=== PATIENT | female | born 1940 | race Caucasian/White ===

== ENCOUNTER 2018-11-27 06:41 | Inpatient (IN) | payer OTHER ==
[2018-11-27] VITALS (22 sets, daily range): BP systolic 112–149; BP diastolic 45–71; PULSE 48–72; RESP 15–18; Ht 157.5 cm; Wt 60.7 kg
[~2018-11-27] VITALS: Ht 157.5 cm; Wt 60.7 kg
[2018-11-27] MEDS ORDERED: SEVOFLURANE 15 MIN ONE (07:00)
[2018-11-27] MEDS ORDERED: GLYCOPYRROLATE 0.4 MG INJ ONE (07:00)
[2018-11-27] MEDS ORDERED: CEFAZOLIN 1 GM INJ ONE (07:00)
[2018-11-27] MEDS ORDERED: LOSA25TA12 PO (07:11)
[2018-11-27] MEDS ORDERED: HYDR25TA6 ORAL (07:11)
[2018-11-27] MEDS ORDERED: CHOL100062 PO (07:11)
[2018-11-27] MEDS ORDERED: B CO PO (07:11)
[2018-11-27] MEDS ORDERED: CYCL1DRO OP (07:11)
[2018-11-27] MEDS ORDERED: ESOM40CA ORAL (07:11)
[2018-11-27] MEDS ORDERED: CALC500T91 PO (07:12)
[2018-11-27] MEDS: LACTATED RINGER'S 1,000 ML IV SCH (07:30)
--- NOTE | 2018-11-27 07:42 | PREAC ---
Date/Time of Note Date/Time of Note DATE: 11/27/18 TIME: 07:40 Anesthesia Eval and Record Evaluation Time Pre-Procedure Interview DATE: 11/27/18 TIME: 07:40 Age 78 Sex female NPO: 8 hrs Preoperative diagnosis right knee osteoarthritis Planned procedure right total knee replacement Past Medical History Past Medical History: Includes Cardio: HTN, Arrythmia (pacemaker) Surgery & Anesthesia Issues No known issue Meds Anticoagulation: No Beta Robin within 24 hr: No Reason Beta Robin not given: Pt. not on B-Robin Reported Medications Calcium Carbonate ([id number]) 500 Mg Tablet, 1000 MG PO DAILY, TAB 11/27/18 Cholecalciferol* (Vitamin D3*) 1,000 Unit Tablet, 1000 UNIT PO DAILY, TAB 11/27/18 B Complex With Vitamin C (B-COMPLEX PLUS VITAMIN C) 1 Each Tablet, 1 TAB PO DAILY, #30 TAB 11/27/18 Cyclosporine (RESTASIS) 1 Each Droperette, 1 DROP OP BID 11/27/18 Esomeprazole Mag Trihydrate (Nexium) 40 Mg Capsule.dr, 1 CAP ORAL DAILY 11/27/18 Hydrochlorothiazide* (Hydrochlorothiazide*) 25 Mg Tab, 1 TAB ORAL DAILY 11/27/18 Losartan Potassium* (Losartan Potassium*) 25 Mg Tablet, 25 MG PO DAILY, TAB 11/27/18 Current Medications Lactated Ringer's 1,000 ml @ 30 mls/hr Q24H IV ; Start 11/27/18 at 07:30 Meds reviewed: Yes Allergies Coded Allergies: Penicillins (Verified Allergy, Mild, Rashes, 11/27/18) Allergies Reviewed: Yes Labs/Studies Labs Reviewed: Reviewed by anesthesiologist test: N/A Studies: CXR Pre-procedure Exam Last vitals Vital Signs Date Temp Pulse Resp B/P (MAP) Pulse Ox O2 O2 Flow FiO2 Time Delivery Rate 11/27/18 97.3 59 18 117/59 99 Room Air 07:15 (78) Airway: Adequate mouth opening, Adequate thyromental dist Mallampati: Mallampati II Teeth: Normal Lung: Normal Heart: Normal ASA Physical Status ASA physical status: 3 Emergency: None Planned Anesthetic General/MAC: ETT, LMA Neuraxial: Spinal Nerve block: Femoral (right) Pre-operative Attestations Prior to commencing anesthesia and surgery, the patient was re-evaluated, there was verification of: *The patient's identity *The results of appropriate recent lab work and preoperative vital signs *The above evaluation not changing prior to induction *Anesthetic plan, risk benefits, alternative and complications discussed with patient/family; questions answered; patient/family understands, accepts and wishes to proceed. PEYMAN LUNA November 27, 2018 07:42
[2018-11-27] MEDS ORDERED: BACITRACIN 50000 UNITS INJ ONE (07:43)
[2018-11-27] MEDS ORDERED: PROPOFOL 20 ML ONE (07:45)
[2018-11-27] MEDS ORDERED: POLYMYXIN B 500000 UNIT INJ ONE (07:45)
[2018-11-27] MEDS ORDERED: LIDOCAINE 2% (SDV) 5 ML INJ ONE (07:46)
[2018-11-27] MEDS ORDERED: ROCURONIUM 50 MG INJ ONE ×2 (07:46→09:14)
[2018-11-27] MEDS ORDERED: MIDAZOLAM 1 MG/ML 2 ML INJ ONE (07:47)
[2018-11-27] MEDS ORDERED: FENTAnyl 50 MCG/ML VIAL ONE (07:48)
[2018-11-27] MEDS ORDERED: TRANEXAMIC ACID 1GM/100ML(PMX) 100 ML ONE (07:55)
[2018-11-27] MEDS ORDERED: TRANEXAMIC ACID 1GM/100ML(PMX) 20 ML IV STA (08:14)
--- NOTE | 2018-11-27 08:14 | HPN ---
Date/Time of Note Date/Time of Note DATE: 11/27/18 TIME: 08:14 Interval H&P Admission Note Pt. seen H&P reviewed: No system changes KARLA VILLELA MD November 27, 2018 08:14
[2018-11-27] MEDS ORDERED: POLYMYXIN/BACITRACIN 1L IRRIG IRR ONE (09:05)
[2018-11-27] MEDS ORDERED: ONDANSETRON 4 MG INJ ONE (10:15)
[2018-11-27] MEDS ORDERED: BUPIVACAINE 0.5% (SDV) 30 ML INJ ONE (10:15)
[2018-11-27] MEDS ORDERED: DEXAMETHASONE 4 MG/ML 5 ML INJ ONE (10:15)
[2018-11-27] MEDS ORDERED: NEOSTIGMINE 3 MG/3 ML SYRINGE ONE (10:25)
--- NOTE | 2018-11-27 10:45 | PAC ---
Date/Time of Note Date/Time of Note DATE: 11/27/18 TIME: 10:44 Post-Anesthesia Notes Post-Anesthesia Note Last documented vital signs Vital Signs Date Temp Pulse Resp B/P (MAP) Pulse Ox O2 O2 Flow FiO2 Time Delivery Rate 11/27/18 97.3 59 18 117/59 99 Room Air 1044 (78) Activity: WNL Respiratory function: WNL Cardiovascular function: WNL Mental status: Baseline Pain reasonably controlled: Yes Hydration appropriate: Yes Nausea/Vomiting absent: Yes PEYMAN LUNA November 27, 2018 10:45
--- NOTE | 2018-11-27 10:56 | OPR ---
Date/Time of Note Date/Time of Note DATE: 11/27/18 TIME: 10:52 Operative Report Preoperative Diagnosis Right knee osteoarthritis Postoperative Diagnosis Same Operation/Procedure Performed Right total knee replacement Surgeon see signature line [employer] Repairer Tameka Valladares Anesthesia Type: general, spinal, other (Abductor canal block) Estimated Blood Loss: 100 - 150 ml's Transfusion none Specimen Bone Grafts/Implants Romana implants Femur size 2 Tibia size 2 Insert 13 mm Patella A32mm Complications none Pt Condition Post Procedure: stable Disposition: PACU Procedure Description INDICATIONS FOR PROCEDURE: This is a 78-year-old female who has had progressive pain in the right knee. The patient has failed nonoperative treatment and now presents for elective total knee replacement. Risks and benefits were discussed with the patient, risks including but not limited to infection, bleeding, blood clots, dislocation, fracture, knee stiffness, nerve damage, blood vessel damage, along with other medical, anesthetic and surgical complications were discussed. Informed consent was obtained. DESCRIPTION OF PROCEDURE: The patient's correct extremity was identified in the preoperative area. The patient was brought back to the operating room where a spinal anesthetic was placed followed by an adductor canal block. The correct extremity was then prepped and draped in the standard sterile manner. A timeout was performed. Esmarch was used to exsanguinate. The thigh tourniquet was inflated to 250 mmHg. I then made a standard midline incision for approaching the knee. I went through skin and subcutaneous tissue, made a medial parapatellar arthrotomy. Then, flexed the knee and introduced an intramedullary alignment guide. Distal femoral cut was made and then the extramedullary alignment guide was used to make the tibial cut. Flexion and extension gaps were checked. There were symmetric. The knee went from full extension to full flexion. I then turned my attention to the patella. I used an [id number] mill type cutting guide, cut the patellar to appropriate thickness and sized the patella. I then trialed the patella. The patella tracked well without any external pressure. I then made the peg holes for the femoral trial. Punched the tibia. I took out all trial components. Thoroughly irrigated the bony surfaces, dried them with a lap sponge. I then proceeded to cement the tibia, femur and patellar components. A trial insert was used till the cement hardened. After the cement hardened, I thoroughly irrigted the knee. The knee was well balanced. I then let down the tourniquet, obtained adequate hemostasis. I thoroughly irrigated the knee. I then impacted the appropriate all poly insert until it locked into place and I had full range of motion with just a jog of opening with varus and valgus stress. I then turned my attention to closure. I closed the medial parapatellar arthrotomy with interrupted #1 Vicryl, subcutaneous tissue was closed with 2-0 Vicryl, skin with richard. Dry sterile dressings were applied. The patient had good perfusion to her foot with a 2+ dorsalis pedis pulse. She was then extubated and transported to recovery in stable condition. KARLA VILLELA MD November 27, 2018 10:56
[2018-11-27] MEDS ORDERED: oxyCODONE 5 MG TAB PO PRN ×2 (11:00)
[2018-11-27] MEDS ORDERED: METOCLOPRAMIDE 10 MG INJ IV PRN (11:00)
[2018-11-27] MEDS ORDERED: ALBUTEROL 0.083% (NEB) 2.5 MG/3 ML AMP HHN PRN (11:00)
[2018-11-27] MEDS ORDERED: HYDROmorphONE 1 MG/5 ML IV SYRINGE IV PRN ×3 (11:00)
[2018-11-27] MEDS ORDERED: EPHEDrine 25 MG/5 ML SYG IV PRN (11:00)
[2018-11-27] MEDS ORDERED: NALOXONE (0.4 MG/ML) INJ IV PRN (11:00)
[2018-11-27] MEDS ORDERED: LABETALOL HCL 20MG INJ IV PRN (11:00)
[2018-11-27] MEDS ORDERED: NACL 0.9% 3 ML SYG IV SCH (11:00)
[2018-11-27] MEDS ORDERED: FENTAnyl 50 MCG/ML VIAL IV PRN ×3 (11:00)
[2018-11-27] MEDS ORDERED: BETHANECHOL 25 MG TAB PO PRN (11:00)
[2018-11-27] MEDS ORDERED: KETOROLAC 30 MG INJ IV PRN (11:00)
[2018-11-27] MEDS ORDERED: DOCUSATE SODIUM 100 MG CAP PO ONE (11:00)
[2018-11-27] MEDS ORDERED: MIDAZOLAM 1 MG/ML 2 ML INJ IV PRN (11:00)
[2018-11-27] MEDS ORDERED: MAGNESIUM HYDROXIDE 30ML CUP PO PRN (11:00)
[2018-11-27] MEDS ORDERED: ONDANSETRON 4 MG INJ IV PRN (11:00)
[2018-11-27] MEDS ORDERED: hydrALAzine 20 MG INJ IV PRN (11:00)
[2018-11-27] MEDS ORDERED: MEPERIDINE 25 MG INJ IV PRN (11:00)
[2018-11-27] MEDS ORDERED: NA PHOSPHATE/BIPHOS 133 ML ENEMA PR PRN (11:00)
[2018-11-27] MEDS ORDERED: DIPHENHYDRAMINE 50 MG INJ IV PRN (11:00)
[2018-11-27] MEDS ORDERED: BISACODYL 10 MG SUPP PR PRN (11:00)
[2018-11-27] MEDS ORDERED: SENNA/DOCUSATE NA (8.6MG/50MG) TAB PO PRN (11:00)
[2018-11-27] MEDS: CEFAZOLIN 2 GM/50 ML (PMX) 50 ML IVPB SCH ×2 (11:26→18:27)
[2018-11-27] MEDS: SOD CHLORIDE 0.9% 1,000 ML IV SCH (11:56)
[2018-11-27] MEDS: ONDANSETRON 4 MG INJ IV SCH ×2 (11:56→18:27)
[2018-11-27] MEDS: HYDROmorphONE 1 MG/ML SYG IV PRN ×2 (13:50→20:39)
[2018-11-27] MEDS: CALCIUM CARBONATE 1.25 GM TAB PO SCH (20:39)
[2018-11-27] MEDS: CYCLOSPORINE 0.05% OPH DROPERETTE BOTH EYES SCH (21:00)
[2018-11-28] VITALS: BP 102/51; PULSE 50; RESP 18
[2018-11-28] MEDS: ONDANSETRON 4 MG INJ IV SCH ×2 (00:02→06:00)
[2018-11-28] MEDS: SOD CHLORIDE 0.9% 1,000 ML IV SCH (01:07)
[2018-11-28] MEDS: CEFAZOLIN 2 GM/50 ML (PMX) 50 ML IVPB SCH (03:38)
[2018-11-28] MEDS: CYCLOSPORINE 0.05% OPH DROPERETTE BOTH EYES SCH ×2 (06:53→21:13)
[2018-11-28] MEDS: NEXIUM 40 MG CAPSULE PO SCH (06:53)
[2018-11-28] MEDS: LACTATED RINGER'S 1,000 ML IV SCH (06:55)
[2018-11-28] MEDS: HYDROmorphONE 1 MG/ML SYG IV PRN (08:14)
[2018-11-28 08:19] VITALS: BP 131/61; PULSE 68; RESP 18
[2018-11-28] MEDS: CHOLECALCIFEROL 1,000 UNIT TAB PO SCH (08:31)
[2018-11-28] MEDS: CALCIUM CARBONATE 1.25 GM TAB PO SCH ×2 (08:31→21:13)
[2018-11-28] MEDS: VITAMIN B COMPLEX/VIT C CAP PO SCH (08:31)
[2018-11-28] MEDS: DOCUSATE SODIUM 100 MG CAP PO SCH ×2 (08:31→21:13)
[2018-11-28] MEDS: HYDROCHLOROTHIAZIDE 25 MG TAB PO SCH (08:32)
[2018-11-28] MEDS: LOSARTAN 25 MG TAB PO SCH (08:32)
--- NOTE | 2018-11-28 09:09 | PN ---
Date/Time of Note Date/Time of Note DATE: 11/28/18 TIME: 09:07 Subjective Chart was reviewed. Doing well. Pain is well controlled. She walked with physical therapy immediately following surgery Objective Vitals Vital Signs Date Temp Pulse Resp B/P (MAP) Pulse Ox O2 O2 Flow FiO2 Time Delivery Rate 11/28/18 98.3 68 18 131/61 98 Room Air 08:19 (84) Intake and Output 11/27/18 11/27/18 11/28/18 1515:00 23:00 07:00 IntakeIntake Total 1750 ml 690 ml 1410 ml OutputOutput Total 400 ml 500 ml 1300 ml BalanceBalance 1350 ml 190 ml 110 ml Clear to auscultation bilaterally Regular rate and rhythm Soft nontender nondistended normoactive bowel sounds Right knee with clean dressing Nonfocal Results Result Diagram: 11/28/18 0501 Medications Medications Current Medications Lactated Ringer's 1,000 ml @ 30 mls/hr Q24H IV ; Start 11/27/18 at 07:30 Sodium Chloride 1,000 ml @ 80 mls/hr [id number] IV Last administered on 11/28/18at 01:07; Admin Dose 80 MLS/HR; Start 11/27/18 at 10:40 IV Flush (NS 3 ml) 3 ml PER PROTOCOL IV ; Start 11/27/18 at 11:00 Oxycodone HCl (Roxicodone) 15 mg Q4H PRN PO .PAIN; Start 11/27/18 at 11:00 Oxycodone HCl (Roxicodone) 10 mg Q4H PRN PO .PAIN; Start 11/27/18 at 11:00 Oxycodone HCl (Roxicodone) 5 mg Q4H PRN PO .PAIN; Start 11/27/18 at 11:00 Hydromorphone HCl (Dilaudid) 1 mg Q3H PRN IV .BREAKTHROUGH PAIN Last administered on 11/28/18at 08:14; Admin Dose 1 MG; Start 11/27/18 at 11:00 Docusate Sodium (Colace) 200 mg BID PO Last administered on 11/28/18at 08:31; Admin Dose 200 MG; Start 11/28/18 at 09:00; Stop 12/01/18 at 08:59 Simethicone (Mylicon) 80 mg TID PRN PO .GAS; Start 11/27/18 at 11:00 Senna/Docusate Sodium (Senokot-S) 2 tab BID PRN PO .CONSTIPATION; Start 11/27/18 at 11:00 Magnesium Hydroxide (Milk Of Mag) 30 ml HS PRN PO .CONSTIPATION; Start 11/27/18 at 11:00 Bisacodyl (Dulcolax Supp) 10 mg DAILY PRN [place] .CONSTIPATION; Start 11/27/18 at 11:00 Sodium Biphosphate/ Sodium Phosphate (Fleet Enema) 133 ml DAILY PRN [place] .CONSTIPATION; Start 11/27/18 at 11:00 Naloxone HCl (Narcan) 0.2 mg Q2M PRN IV .RESP RATE; Start 11/27/18 at 11:00 Bethanechol Chloride (Urecholine) 25 mg URINARY CATH D/C PRN PO UNABLE TO VOID; Start 11/27/18 at 11:00 Enoxaparin Sodium (Lovenox) 30 mg Q12 SC ; Start 11/27/18 at 21:00; Status Hold Vitamin B Complex/ Vitamin C (Berocca) 1 cap DAILY PO Last administered on 11/28/18 08:31; Admin Dose 1 CAP; Start 11/28/18 at 09:00 Calcium Carbonate (Oyster Shell Calcium) 1.25 gm BID PO Last administered on 11/28/18 08:31; Admin Dose 1.25 GM; Start 11/27/18 at 21:00 Cholecalciferol (Vitamin D) 1,000 unit DAILY PO Last administered on 11/28/18 08:31; Admin Dose 1,000 UNIT; Start 11/28/18 at 09:00 Cyclosporine (Restasis) 1 drop BID BOTH EYES Last administered on 11/28/18 06:53; Admin Dose 1 DROP; Start 11/27/18 at 21:00 Hydrochlorothiazide (Hydrochlorothiazide) 25 mg DAILY PO Last administered on 11/28/18 08:32; Admin Dose 25 MG; Start 11/28/18 at 09:00 Losartan Potassium (Cozaar) 25 mg DAILY PO Last administered on 11/28/18 08:32; Admin Dose 25 MG; Start 11/28/18 at 09:00 Patient Own Medication 1 ea DAILY PO Last administered on 11/28/18 06:53; Admin Dose 1 EA; Start 11/28/18 at 09:00 VTE Prophylaxis Risk score (from Ns)>0 risk: 8 SCD applied (from [facility] [place]): Yes Lines/Catheters IV Catheter Type: Saline Lock Storey in Place: No Assessment/Plan Assessment/Plan 78-year-old female postop day #1 right total knee replacement Hypertension, well controlled History of gastritis Status post pacemaker placement in 1992 Continue postop care Physical therapy Monitor CBC Discharge planning in a.m. Orthopedic follow-up BETZAIDA LAZARO MD November 28, 2018 09:09
--- NOTE | 2018-11-28 09:38 | PN ---
Date/Time of Note Date/Time of Note DATE: 11/28/18 TIME: 09:37 Assessment/Plan Lines/Catheters IV Catheter Type (from Nrs): Saline Lock Krishnamurthy in Place (from Nrs): No Assessment/Plan Assessment/Plan POD 1 Doing well OOB with PT, CPM Lovenox, SCD's for DVT prophylaxis Ok to discharge on Xarelto for 12 days tomorrow D/c krishnamurthy Discharge planning Subjective 24 Hr Interval Summary No complaints. Working with PT. Exam/Review of Systems Vital Signs Vitals Vital Signs Date Temp Pulse Resp B/P (MAP) Pulse Ox O2 O2 Flow FiO2 Time Delivery Rate 11/28/18 98.3 68 18 131/61 98 Room Air 08:19 (84) Intake and Output 11/27/18 11/27/18 11/28/18 1515:00 23:00 07:00 IntakeIntake Total 1750 ml 690 ml 1410 ml OutputOutput Total 400 ml 500 ml 1300 ml BalanceBalance 1350 ml 190 ml 110 ml Exam Free Text/Dictation Left Knee Drainage on dressing. Dressing removed. Incision clean, dry and intact. No erythema Calf soft intact motor and sensory function in foot Foot warm Results Result Diagram: 11/28/18 0501 KARLA VILLELA MD November 28, 2018 09:38
[2018-11-28] MEDS: ENOXAPARIN 30 MG/0.3 ML SYG SC SCH (11:00)
--- NOTE | 2018-11-28 12:00 | HP ---
Date/Time of Note Date/Time of Note DATE: 11/28/18 TIME: 11:59 Assessment/Plan VTE Prophylaxis Risk score (from Ns)>0 risk: 6 SCD applied (from Ns): Yes Pharmacological prophylaxis: LMWH Lines/Catheters IV Catheter Type (from Nrs): Saline Lock Urinary Cath still in place: No Assessment/Plan Hospital Course 1) osteoarthritis - s/p knee replacement - PT - pain medication 2) hypertension - continue home medication Result Diagram: 11/28/18 0501 Results 24hrs Laboratory Tests Test 11/28/18 04:30 11/28/18 05:01 11/28/18 06:53 Urine Color YELLOW Urine Clarity SLIGHTLY CLOUDY A Urine pH 5.0 Urine Specific [place] 1.009 Urine Ketones NEGATIVE Urine Nitrite NEGATIVE Urine Bilirubin NEGATIVE Urine Urobilinogen NEGATIVE Urine Leukocyte Esterase NEGATIVE Urine Microscopic RBC > 182 H Urine Microscopic WBC 13 H Urine Squamous FEW Epithelial Cells Urine Bacteria FEW A Urine Hemoglobin 3+ H Urine Glucose 1+ H Urine Total Protein NEGATIVE White Blood Count 19.6 H Red Blood Count 3.62 L Hemoglobin 11.3 L Hematocrit 34.0 L Mean Corpuscular Volume 93.9 Mean Corpuscular Hemoglobin 31.2 Mean Corpuscular 33.2 Hemoglobin Concent Red Cell Distribution Width 12.2 Platelet Count 223 Mean Platelet Volume 10.3 Immature Granulocytes % 0.500 H Neutrophils % 88.9 H Lymphocytes % 5.1 L Monocytes % 5.4 Eosinophils % 0.0 Basophils % 0.1 Nucleated Red Blood Cells % 0.0 Immature Granulocytes # 0.100 H Neutrophils # 17.4 H Lymphocytes # 1.0 Monocytes # 1.1 H Eosinophils # 0.0 Basophils # 0.0 Nucleated Red Blood Cells # 0.0 Lab Scanned Report REFERENCE LAB HPI/ROS Admit Date/Time Admit Date/Time November 27, 2018 at 06:41 Hx of Present Illness Patient with hypertension, GERD, osteoarthritis is here fro knee replacement. PMH/Family/Social Past Medical History Medical History: GERD, hypertension Medications Current Medications IV Flush (NS 3 ml) 3 ml PER PROTOCOL IV ; Start 11/27/18 at 11:00 Oxycodone HCl (Roxicodone) 15 mg Q4H PRN PO .PAIN; Start 11/27/18 at 11:00 Oxycodone HCl (Roxicodone) 10 mg Q4H PRN PO .PAIN; Start 11/27/18 at 11:00 Oxycodone HCl (Roxicodone) 5 mg Q4H PRN PO .PAIN; Start 11/27/18 at 11:00 Hydromorphone HCl (Dilaudid) 1 mg Q3H PRN IV .BREAKTHROUGH PAIN Last administered on 11/28/18at 08:14; Admin Dose 1 MG; Start 11/27/18 at 11:00 Docusate Sodium (Colace) 200 mg BID PO Last administered on 11/28/18at 08:31; Admin Dose 200 MG; Start 11/28/18 at 09:00; Stop 12/01/18 at 08:59 Simethicone (Mylicon) 80 mg TID PRN PO .GAS; Start 11/27/18 at 11:00 Senna/Docusate Sodium (Senokot-S) 2 tab BID PRN PO .CONSTIPATION; Start 11/27/18 at 11:00 Magnesium Hydroxide (Milk Of Mag) 30 ml HS PRN PO .CONSTIPATION; Start 11/27/18 at 11:00 Bisacodyl (Dulcolax Supp) 10 mg DAILY PRN [place] .CONSTIPATION; Start 11/27/18 at 11:00 Sodium Biphosphate/ Sodium Phosphate (Fleet Enema) 133 ml DAILY PRN [place] .CONSTIPATION; Start 11/27/18 at 11:00 Naloxone HCl (Narcan) 0.2 mg Q2M PRN IV .RESP RATE; Start 11/27/18 at 11:00 Bethanechol Chloride (Urecholine) 25 mg URINARY CATH D/C PRN PO UNABLE TO VOID; Start 11/27/18 at 11:00 Enoxaparin Sodium (Lovenox) 30 mg Q12 SC Last administered on 11/28/18at 11:00; Admin Dose 30 MG; Start 11/27/18 at 21:00 Vitamin B Complex/ Vitamin C (Berocca) 1 cap DAILY PO Last administered on 11/28/18at 08:31; Admin Dose 1 CAP; Start 11/28/18 at 09:00 Calcium Carbonate (Oyster Shell Calcium) 1.25 gm BID PO Last administered on 11/28/18 08:31; Admin Dose 1.25 GM; Start 11/27/18 at 21:00 Cholecalciferol (Vitamin D) 1,000 unit DAILY PO Last administered on 11/28/18 08:31; Admin Dose 1,000 UNIT; Start 11/28/18 at 09:00 Cyclosporine (Restasis) 1 drop BID BOTH EYES Last administered on 11/28/18 06:53; Admin Dose 1 DROP; Start 11/27/18 at 21:00 Hydrochlorothiazide (Hydrochlorothiazide) 25 mg DAILY PO Last administered on 11/28/18 08:32; Admin Dose 25 MG; Start 11/28/18 at 09:00 Losartan Potassium (Cozaar) 25 mg DAILY PO Last administered on 11/28/18 08:32; Admin Dose 25 MG; Start 11/28/18 at 09:00 Patient Own Medication 1 ea DAILY PO Last administered on 11/28/18 06:53; Admin Dose 1 EA; Start 11/28/18 at 09:00 Coded Allergies: Penicillins (Verified Allergy, Mild, Rashes, 11/27/18) Social History Smoking Status: Never smoker Exam/Review of Systems Vital Signs Vitals Vital Signs Date Temp Pulse Resp B/P (MAP) Pulse Ox O2 O2 Flow FiO2 Time Delivery Rate 11/28/18 98.3 68 18 131/61 98 Room Air 08:19 (84) Intake and Output 11/27/18 11/27/18 11/28/18 1515:00 23:00 07:00 IntakeIntake Total 1750 ml 690 ml 1410 ml OutputOutput Total 400 ml 500 ml 1300 ml BalanceBalance 1350 ml 190 ml 110 ml Exam Constitutional: well developed Head: normocephalic, atraumatic Neck: supple Respiratory: clear to auscultation Cardiovascular: regular rate and rhythm Gastrointestinal: soft, non-tender Musculoskeletal: nl extremities to inspection KRISTIE CASAS November 28, 2018 12:00
[2018-11-28 14:00] VITALS: BP 120/58; PULSE 70; RESP 18
[2018-11-28] MEDS: oxyCODONE 5 MG TAB PO PRN (17:34)
[2018-11-28 19:25] VITALS: BP 156/70; PULSE 73; RESP 18
[2018-11-28] MEDS ORDERED: ENOXAPARIN 30 MG/0.3 ML SYG SC SCH (21:00)
[2018-11-29] MEDS: oxyCODONE 5 MG TAB PO PRN ×2 (00:36→04:51)
[2018-11-29 02:04] VITALS: BP 140/64; PULSE 68; RESP 18
[2018-11-29] MEDS ORDERED: PANTOPRAZOLE (EC) 40 MG TAB PO SCH (06:00)
[2018-11-29 08:03] VITALS: BP 143/64; PULSE 67; RESP 18
[2018-11-29] MEDS: CYCLOSPORINE 0.05% OPH DROPERETTE BOTH EYES SCH (08:51)
[2018-11-29] MEDS: NEXIUM 40 MG CAPSULE PO SCH (08:51)
[2018-11-29] MEDS: CALCIUM CARBONATE 1.25 GM TAB PO SCH (08:52)
[2018-11-29] MEDS: CHOLECALCIFEROL 1,000 UNIT TAB PO SCH (08:52)
[2018-11-29] MEDS: VITAMIN B COMPLEX/VIT C CAP PO SCH (08:52)
[2018-11-29] MEDS: HYDROCHLOROTHIAZIDE 25 MG TAB PO SCH (08:53)
[2018-11-29] MEDS: DOCUSATE SODIUM 100 MG CAP PO SCH (08:53)
[2018-11-29] MEDS: LOSARTAN 25 MG TAB PO SCH (08:53)
[2018-11-29] MEDS: ENOXAPARIN 30 MG/0.3 ML SYG SC SCH ×2 (08:57→09:00)
[2018-11-29] MEDS ORDERED: RIVA10TA PO (09:00)
[2018-11-29] MEDS ORDERED: HYDR-4011 PO (09:01)
--- NOTE | 2018-11-29 09:02 | PDOCDIS ---
Discharge Instructions CONDITION [id number] Patient Condition: [id number] Good HOME CARE INSTRUCTIONS: [id number] Diet Instructions: [id number] y Rest between Activity Avoid heavy lifting Do not Drive Avoid Heavy Housework [id number] Bathing Restrictions: [id number] Tub Bath FOLLOW UP/APPOINTMENTS Follow-up Plan Dr Araiza 2 weeks pcp 1 week BETZAIDA LAZARO MD November 29, 2018 09:02
[2018-11-29] MEDS ORDERED: RIVAROXABAN 10 MG TABLET PO ONE (09:30)
--- NOTE | 2018-11-29 12:06 | PN ---
Date/Time of Note Date/Time of Note DATE: 11/29/18 TIME: 12:06 Assessment/Plan VTE Prophylaxis Risk score (from Ns)>0 risk: 8 SCD applied (from Ns): Yes Pharmacological prophylaxis: LMWH Lines/Catheters IV Catheter Type (from Nrs): Saline Lock Urinary Cath still in place: No Assessment/Plan Hospital Course 1) osteoarthritis - s/p knee replacement - PT - pain medication 2) hypertension - continue home medication Result Diagram: 11/29/18 0432 Results 24hrs Laboratory Tests Test 11/29/18 04:32 White Blood Count 16.8 H Red Blood Count 3.47 L Hemoglobin 10.9 L Hematocrit 32.1 L Mean Corpuscular Volume 92.5 Mean Corpuscular Hemoglobin 31.4 Mean Corpuscular Hemoglobin Concent 34.0 Red Cell Distribution Width 12.3 Platelet Count 191 Mean Platelet Volume 10.0 Immature Granulocytes % 0.800 H Neutrophils % 81.4 H Lymphocytes % 8.3 L Monocytes % 8.9 Eosinophils % 0.1 Basophils % 0.5 Nucleated Red Blood Cells % 0.0 Immature Granulocytes # 0.130 H Neutrophils # 13.7 H Lymphocytes # 1.4 Monocytes # 1.5 H Eosinophils # 0.0 Basophils # 0.1 Nucleated Red Blood Cells # 0.0 Subjective 24 Hr Interval Summary Free Text/Dictation Patient still has leg pain Exam/Review of Systems Exam Vitals Vital Signs Date Temp Pulse Resp B/P (MAP) Pulse Ox O2 O2 Flow FiO2 Time Delivery Rate 11/29/18 98.3 67 18 143/64 94 Room Air 08:03 (90) Intake and Output 11/28/18 11/28/18 11/29/18 1515:00 23:00 07:00 IntakeIntake Total 1200 ml 1820 ml 420 ml OutputOutput Total 600 ml BalanceBalance 600 ml 1820 ml 420 ml Constitutional: well developed Head: normocephalic, atraumatic Neck: supple Respiratory: clear to auscultation Cardiovascular: regular rate and rhythm Gastrointestinal: soft, non-tender Extremities: normal pulses Results Results 24hrs Laboratory Tests Test 11/29/18 04:32 White Blood Count 16.8 H Red Blood Count 3.47 L Hemoglobin 10.9 L Hematocrit 32.1 L Mean Corpuscular Volume 92.5 Mean Corpuscular Hemoglobin 31.4 Mean Corpuscular Hemoglobin Concent 34.0 Red Cell Distribution Width 12.3 Platelet Count 191 Mean Platelet Volume 10.0 Immature Granulocytes % 0.800 H Neutrophils % 81.4 H Lymphocytes % 8.3 L Monocytes % 8.9 Eosinophils % 0.1 Basophils % 0.5 Nucleated Red Blood Cells % 0.0 Immature Granulocytes # 0.130 H Neutrophils # 13.7 H Lymphocytes # 1.4 Monocytes # 1.5 H Eosinophils # 0.0 Basophils # 0.1 Nucleated Red Blood Cells # 0.0 Medications Medication Current Medications IV Flush (NS 3 ml) 3 ml PER PROTOCOL IV ; Start 11/27/18 at 11:00 Oxycodone HCl (Roxicodone) 15 mg Q4H PRN PO .PAIN Last administered on 11/28/18at 13:15; Admin Dose 15 MG; Start 11/27/18 at 11:00 Oxycodone HCl (Roxicodone) 10 mg Q4H PRN PO .PAIN Last administered on 11/29/18at 04:51; Admin Dose 10 MG; Start 11/27/18 at 11:00 Oxycodone HCl (Roxicodone) 5 mg Q4H PRN PO .PAIN; Start 11/27/18 at 11:00 Hydromorphone HCl (Dilaudid) 1 mg Q3H PRN IV .BREAKTHROUGH PAIN Last administered on 11/28/18at 08:14; Admin Dose 1 MG; Start 11/27/18 at 11:00 Docusate Sodium (Colace) 200 mg BID PO Last administered on 11/29/18at 08:53; Admin Dose 200 MG; Start 11/28/18 at 09:00; Stop 12/01/18 at 08:59 Simethicone (Mylicon) 80 mg TID PRN PO .GAS; Start 11/27/18 at 11:00 Senna/Docusate Sodium (Senokot-S) 2 tab BID PRN PO .CONSTIPATION; Start 11/27/18 at 11:00 Magnesium Hydroxide (Milk Of Mag) 30 ml HS PRN PO .CONSTIPATION; Start 11/27/18 at 11:00 Bisacodyl (Dulcolax Supp) 10 mg DAILY PRN [place] .CONSTIPATION; Start 11/27/18 at 11:00 Sodium Biphosphate/ Sodium Phosphate (Fleet Enema) 133 ml DAILY PRN [place] .CONSTIPATION; Start 11/27/18 at 11:00 Naloxone HCl (Narcan) 0.2 mg Q2M PRN IV .RESP RATE; Start 11/27/18 at 11:00 Bethanechol Chloride (Urecholine) 25 mg URINARY CATH D/C PRN PO UNABLE TO VOID; Start 11/27/18 at 11:00 Enoxaparin Sodium (Lovenox) 30 mg Q12 SC Last administered on 11/28/18 11:00; Admin Dose 30 MG; Start 11/27/18 at 21:00 Vitamin B Complex/ Vitamin C (Berocca) 1 cap DAILY PO Last administered on 11/29/18 08:52; Admin Dose 1 CAP; Start 11/28/18 at 09:00 Calcium Carbonate (Oyster Shell Calcium) 1.25 gm BID PO Last administered on 11/29/18 08:52; Admin Dose 1.25 GM; Start 11/27/18 at 21:00 Cholecalciferol (Vitamin D) 1,000 unit DAILY PO Last administered on 11/29/18 08:52; Admin Dose 1,000 UNIT; Start 11/28/18 at 09:00 Cyclosporine (Restasis) 1 drop BID BOTH EYES Last administered on 11/29/18 08:51; Admin Dose 1 DROP; Start 11/27/18 at 21:00 Hydrochlorothiazide (Hydrochlorothiazide) 25 mg DAILY PO Last administered on 11/29/18 08:53; Admin Dose 25 MG; Start 11/28/18 at 09:00 Losartan Potassium (Cozaar) 25 mg DAILY PO Last administered on 11/29/18 08:53; Admin Dose 25 MG; Start 11/28/18 at 09:00 Patient Own Medication 1 ea DAILY PO Last administered on 11/28/18 06:53; Admin Dose 1 EA; Start 11/28/18 at 09:00 KRISTIE CASAS November 29, 2018 12:06
--- NOTE | 2018-11-29 12:08 | DS ---
Date/Time of Note Date/Time of Note DATE: 11/29/18 TIME: 12:07 Discharge Summary Admission/Discharge Info Admit Date/Time November 27, 2018 at 06:41 Discharge Date/Time 11/29/18 Discharge Diagnosis 1) knee osteoarthritis - s/p knee replacement - pain medication - physical therapy Patient Condition: Fair Consults orthopedics Procedures knee replacement Hx of Present Illness Patient with hypertension, GERD, osteoarthritis is here fro knee replacement. Hospital Course Patient with hypertension, GERD, osteoarthritis is here fro knee replacement. Patient tolerated the procedure and when felt to be stable, patient was sent home. 1) osteoarthritis - s/p knee replacement - PT - pain medication 2) hypertension - continue home medication Home Meds Active Scripts Hydrocodone/Acetaminophen ([place] 5-325 Tablet) 1 Each Tablet, 1 EACH PO Q4, #30 TAB Prov:BETZAIDA LAZARO MD 11/29/18 Rivaroxaban* (Xarelto*) 10 Mg Tablet, 10 MG PO DAILY for 12 Days, TAB Prov:BETZAIDA LAZARO MD 11/29/18 Reported Medications Calcium Carbonate (Iqeq-Kog-870) 500 Mg Tablet, 1000 MG PO DAILY, TAB 11/27/18 Cholecalciferol* (Vitamin D3*) 1,000 Unit Tablet, 1000 UNIT PO DAILY, TAB 11/27/18 B Complex With Vitamin C (B-COMPLEX PLUS VITAMIN C) 1 Each Tablet, 1 TAB PO DAILY, #30 TAB 11/27/18 Cyclosporine (RESTASIS) 1 Each Droperette, 1 DROP OP BID 11/27/18 Esomeprazole Mag Trihydrate (Nexium) 40 Mg Capsule.dr, 1 CAP ORAL DAILY 11/27/18 Hydrochlorothiazide* (Hydrochlorothiazide*) 25 Mg Tab, 1 TAB ORAL DAILY 11/27/18 Losartan Potassium* (Losartan Potassium*) 25 Mg Tablet, 25 MG PO DAILY, TAB 11/27/18 Follow-up Plan Dr Araiza 2 weeks pcp 1 week Primary Care Provider Not On Staff Doctor Pending Labs Laboratory Tests Test 11/29/18 04:32 White Blood Count 16.8 10^3/ul (4.8-10.8) Red Blood Count 3.47 10^6/ul (4.20-5.40) Hemoglobin 10.9 g/dl (12.0-16.0) Hematocrit 32.1 % (37.0-47.0) Mean Corpuscular Volume 92.5 fl (82.0-101.0) Mean Corpuscular Hemoglobin 31.4 pg (29.0-33.0) Mean Corpuscular Hemoglobin Concent 34.0 g/dl (32.0-37.0) Red Cell Distribution Width 12.3 % (11.5-14.5) Platelet Count 191 10^3/UL (140-415) Mean Platelet Volume 10.0 fl (7.4-10.4) Immature Granulocytes % 0.800 % (0.001-0.429) Neutrophils % 81.4 % (39.0-77.0) Lymphocytes % 8.3 % (15.0-51.0) Monocytes % 8.9 % (0.0-11.0) Eosinophils % 0.1 % (0.0-7.0) Basophils % 0.5 % (0.0-2.0) Nucleated Red Blood Cells % 0.0 /100WBC (0.0-0.0) Immature Granulocytes # 0.130 10^3/ul (0.0-0.031) Neutrophils # 13.7 10^3/ul (1.6-7.5) Lymphocytes # 1.4 10^3/ul (0.8-2.9) Monocytes # 1.5 10^3/ul (0.3-0.9) Eosinophils # 0.0 10^3/ul (0.0-0.5) Basophils # 0.1 10^3/ul (0.0-0.1) Nucleated Red Blood Cells # 0.0 10^3/ul (0.0-0.0) KRISTIE CASAS November 29, 2018 12:08
--- NOTE | 2018-11-29 17:02 | DS ---
DATE OF ADMISSION: 11/27/2018 DATE OF DISCHARGE: 11/29/2018 DISCHARGE DIAGNOSES: 1. Severe right knee osteoarthritis. 2. Status post right total knee replacement. 3. Hypertension. 4. History of gastritis. 5. Status post pacemaker placement in 1992. HOSPITAL COURSE: A 78-year-old female was electively admitted to the hospital by Dr. Villela. She underwent right total knee replacement. There were no intraoperative or postoperative complications . The patient began ambulating on the day of operation. She is in a stable condition for discharge to home with home health physical therapy. Durable medical equipment including CPM was ordered. On physical exam, right knee was with moderate swelling in Armando dressing. There was fair range of mary on. MEDICATIONS ON DISCHARGE: 1. Xarelto 10 mg p.o. daily x12 days. 2. [place] 5/325 one tablet every 4 hours as needed. 3. Losartan 25 mg p.o. daily. 4. Hydrochlorothiazide 25 mg p.o. daily. 5. 40 mg p.o. daily. 6. Vitamin B complex. 7. Vitamin D. FOLLOWUP: 1. Follow up with PCP in 1 week. 2. Follow up with Dr. Villela in 2 weeks. Dictated By: BETZAIDA WATT/NTS Conf#: [id number] DID#: [id number] CC: KARLA VILLELA MD;*EndCC*
== END 2018-11-29 12:07 | disposition home health service (06) | DRG 470 ==
LOC: REC 06:41 → MS1 11:25
PROVIDERS: ADMIT Specialist; ATTEND Specialist
PROC: 0SRC0J9 Replacement of Right Knee Joint with Synthetic Substitute, Cemented, Open Approach (ICD-10-PCS; principal; 2018-11-27 08:00)
DX: M17.11 Unilateral primary osteoarthritis, right knee (principal); I10 Essential (primary) hypertension; Z95.0 Presence of cardiac pacemaker
CPT/HCPCS: 73560; 81001; 85025; 87081; 87086; 88304; 88311; 97110; 97116; 97161; 97530; C1713; C1776; J0690; J1100; J1170; J1650; J2250; J2405; J2710; J3010; J7030; J7120